=== PATIENT | male | born 1950 | race African-American/Black ===

== ENCOUNTER → 2016-11-06 | Day surgery (SDC) | payer MEDICARE, MEDICAID ==
[2016-11-06] VITALS (10 sets, daily range): BP systolic 131–168; BP diastolic 63–94
[~2016-11-06] VITALS: Ht 152.4 cm; Wt 114.8 kg
[~2016-11-06] MED LIST: ACULAR5 ML RIGHT EYE; BRIMONIDINE LEFT EYE; BSS 15ml BTL ONE; BSS 500ml btl ONE; Bupivacaine 0.75% 30ml vial INJ ONE; COLACE100 MG ORAL; COREG25 MG ORAL; Cyclopentolate 1% Opth Sol LEFT EYE SCH; Cyclopentolate 1% Opth Sol ONE; Dexamethasone 4mg/ml vial ONE; DiphenhydrAMINE 50mg/ml Inj IVP PRN; EPINEPHrine 1mg/1ml Amp ONE; FUROSEMIDE20 M1 ORAL; Goniosol 2.5% Opth Soln - 15ml ONE; JANUVIA25 MG ORAL; LORazepam Inj 2mg/ml 1ml IV PRN; LOTENSIN40 MG ORAL; LR 1000ml 1,000 ML IVLG SCH; LR 1000ml ONE; LUMIGAN2.5 ML LEFT EYE; Labetalol 5mg/ml 20ml vial IV PRN; Lidocaine 1% MPF 10mg/ml 5ml ONE; Lidocaine 2% MPF 5ml Vial INJ ONE; MULTIVITAMINS1 EAC2 ORAL; Maxitrol Opth Oint 3.5gm ONE; Midazolam 2mg/2ml Inj IVP PRN; Midazolam 2mg/2ml Inj ONE; NOVOLIN 70100 UNIT/1 SUBQ; NS Irrig 1000ml ONE; PEPCID20 MG ORAL; PLAVIX75 MG ORAL; PRAVACHOL20 MG ORAL; Phenylephrine 2.5% Op Soln LEFT EYE SCH; Phenylephrine 2.5% Op Soln ONE; Povidone-Iodine 5% opth solution ONE; Proparacaine 0.5% Opth Soln 15ml LEFT EYE SCH; Propofol 10mg/ml 20ml IV ONE; RANEXA500 MG ORAL; SEROQUEL XR300 MG ORAL; SEROQUEL XR400 MG ORAL; Sterile Water Irrig 1000ml IRRIG ONE; TAMSULOSIN HCL0.4 MG ORAL; TIMOLOL MALEATE5 ML LEFT EYE; TRUSOPT10 ML LEFT EYE; Tropicamide 1% Opth Soln LEFT EYE SCH; Tropicamide 1% Opth Soln ONE; VIGAMOX1 DROP BOTH EYES; fentaNYL 100 mcg/2 mL IV ONE
--- NOTE | 2016-11-06 09:19 | Anethesia Preoperative Eval ---
Anesthesia Pre-op PMH/ROS General Date of Evaluation: Nov 06, 2016 Anesthesiologist: Edouard ASA Score: ASA 4 Mallampati Score Class I : Soft palate, uvula, fauces, pillars visible Class II: Soft palate, uvula, fauces visible Class III: Soft palate, base of uvula visible Class IV: Only hard plate visible Mallampati Classification: Class III Surgeon: Allie Diagnosis: Left eye retained lens fragments Surgical Procedure: Left eye vitrectomy Anesthesia History: none Family History: no anesthesia problems Allergies: Coded Allergies: PENICILLINS (Verified Allergy, Intermediate, hives, 11/06/16) Medications: see eMAR Past Medical History Cardiovascular: Reports: CAD - s/p TX 2009, s/p stents x2 2013, HTN, other - severe PVD s/p bilateral BKA; HLD, Denies: TX, arrhythmia, valve dz Pulmonary: Reports: asthma, Denies: COPD, HYACINTH, other Gastrointestinal/Genitourinary: Reports: CRI, GERD, other - BPH, Denies: ESRD Neurologic/Psychiatric: Reports: other - schizophrenia, bipolar, Denies: CVA, TIA, dementia, depression/anxiety Endocrine: Reports: DM, Denies: hypothyroidism, other, steroids HEENT: Denies: UPPER SK[place]IT (L), UPPER SKAGIT (R), cataract (L), cataract (R), glaucoma, other Hematology/Immune: Denies: DVT, anemia, bleeding disorder, other Musculoskeletal/Integumentary: Denies: DDD, DJD, OA, RA, edema, other Other: obesity - morbid PSxH Narrative: Bilateral BKA, multiple eye sx Anesthesia Pre-op Phys. Exam Physician Exam see chart Constitutional: other - patient moderate agitated and abrasive towards staff Cardiovascular: other Respiratory: other - bilateral crackles Airway Exam Mallampati Score: Class III MO: full TMD: <3FB ROM: limited Teeth: missing, broken Anesthesia Pre-op A/P Labs see chart Studies Pre-op Studies: EKG - ?junctional rhythm Risk Assessment & Plan Assessment: ASA IV Plan: GA Status Change Before Surgery: No Pre-Antibiotics Drug: N/A YENNIFER BARTLETT M.D. Nov 06, 2016 09:19
--- NOTE | 2016-11-06 09:21 | Pre-Procedure Note/Attestation ---
Pre-Procedure Note/Attestation Complete Prior to Procedure Planned Procedure: left Procedure Narrative: PPV/PPL/AFE OS Indications for Procedure Pre-Operative Diagnosis: RLF OS Attestation I attest that I discussed the nature of the procedure; its benefits; risks and complications; and alternatives (and the risks and benefits of such alternatives ), prior to the procedure, with the patient (or the patient's legal retention representative). I attest that, if there was a reasonable possibility of needing a blood transfusion, the patient (or the patient's legal retention representative) was given the [facility] standardized written summary, pursuant to the [place] Blood Safety Act ([place] Health and Safety Code # 1645, as amended). I attest that I re-evaluated the patient just prior to the surgery and that there has been no change in the patient's H&P, except as documented below: Akhil Kelley M.D. Nov 06, 2016 09:20
--- NOTE | 2016-11-06 10:08 | Immediate Post-Op Evaluation ---
Immediate Post-Op Evalulation Immediate Post-Op Evalulation Procedure: Left eye vitrectomy Date of Evaluation: Nov 06, 2016 Time of Evaluation: 10:56 IV Fluids: 500 Blood Products: 0 Estimated Blood Loss: min Urinary Output: 0 Blood Pressure Systolic: 157 Blood Pressure Diastolic: 90 Pulse Rate: 80 Respiratory Rate: 16 O2 Sat by Pulse Oximetry: 100 Temperature (Fahrenheit): 97.2 Pain Score (1-10): 0 Nausea: No Vomiting: No Complications 0 Patient Status: awake, reacts, patent, none Hydration Status: adequate Drug: N/A YENNIFER BARTLETT M.D. Nov 06, 2016 10:08
--- NOTE | 2016-11-06 10:09 | 48 Hour Post Anesthesia Eval ---
Post Anesthesia Evaluation Procedure: Left eye vitrectomy Date of Evaluation: Nov 06, 2016 Blood Pressure Systolic: 164 0: 87 Pulse Rate: 79 Respiratory Rate: 17 Temperature (Fahrenheit): 97.2 O2 Sat by Pulse Oximetry: 100 Airway: patent Nausea: No Vomiting: No Pain Intensity: 0 Hydration Status: adequate Cardiopulmonary Status: at baseline Mental Status/LOC: patient returned to baseline Post-Anesthesia Complications: 0 Follow-up care needed: ready to discharge YENNIFER BARTLETT M.D. Nov 06, 2016 10:09
--- NOTE | 2016-11-06 10:41 | Operative Note - PDOC ---
Operative Note Operative Note Pre-op Diagnosis: Retained lens fragment and diabetic retinopathy OS Procedure: PPV/PPL/PRP/AFE OS Post-op Diagnosis: RLF/PDR/VH OS Surgeon: Allie Anesthesia: general Specimen: none Complications: none Condition: stable Estimated Blood Loss: minimal Drains: none Implant(s) used?: No Indications for Procedure The patient has retained lens fragments following CE/IOL and presents today for surgery after review of the risks, benefits, alternative and signing informed consent into the medical chart. Description of Procedure Procedure performed: The patient was met in the pre-op area. Informed consent was reviewed the eye was marked and dilated. The patient was transferred to the operative suite, where cardiopulmonary monitoring was established and general anesthesia was induced without complications. The eye was prepped and draped in sterile ophthalmic fashion. Under microscopic visualization the 23 gauge infusion line was placed 3.5 millimeters inferotemporally. After visualization of the tip in the vitreous cavity, the infusion line was turned on. The superotemporal and superonasal cannulas were placed. The anterior lens fragments were cleared with the vitreous cutter. Under BIOM visualization, peripheral and core vitrectomy was performed. Posterior vitreous separation was induced. As further peripheral vitrectomy was performed, there were a large nuclear fragments in the anterior vitreous base. Phacofragmentation was used to removed the nuclear fragments. Inspection of the periphery revealed vitreous hemorrhage from areas of peripheral NVE. No iatrogenic breaks were noted. Endolaser was applied to perform PRP therapy. Air fluid exchange was performed. The sclerotomies were sutured. The eye maintained normal pressure. Subconjunctival vancomycin and dexamethasone were administered. The lid speculum was removed. The eye was cleaned of prep and drape. Maxitrol ointment was applied and a pressure patch was placed. The patient was turned over to the anesthesia team who transferred her in stable condition to the PACU. Akhil Kelley M.D. Nov 06, 2016 10:41
--- NOTE | 2016-11-06 23:30 | Pre-op HX & Phy Repo 2 SIG ---
DATE OF ADMISSION: 11/06/2016 REASON FOR EVALUATION: I was asked by Dr. Kelley to see this 66-year-old male, who going for elective surgery on the left eye. The patient has retained lens material fragment in left eye. The patient was examined. Chart was reviewed. The patient is a resident of [facility]. PAST MEDICAL HISTORY: Obtained from the chart from [facility] ([place], [place]) and from patient's information. PAST MEDICAL HISTORY/REVIEW OF SYSTEMS: Remarkable for history of heart attack 10 years ago, angina pectoris, coronary angioplasty and stent placement four years ago . The patient has history of hypertension, GERD, renal insufficiency, insulin-dependent diabetes mellitus, hyperlipidemia, bipolar disorder, peripheral artery disease, bilateral eajws-[id number]-advf amputation, history of chronic constipation. PAST SURGICAL HISTORY: Cataract surgery of both eyes and bilateral [id number]-[id number] amputation, multiple. MEDICATIONS: Present medications include Plavix last intake yesterday, Seroquel 400 mg daily, Lasix, Ranexa, Pepcid, Coreg 25 mg, Plavix 75 mg, Januvia 50 mg daily, eye drops, milk of magnesia and statins. The patient is on Humulin 70/30, 30 units daily. ALLERGIES: Penicillin, developed hives. HABITS: Tobacco use, two cigarettes a day. Alcohol last 18 [address] ago[address] drugs. FAMILY HISTORY: Remarkable for mother had diabetes mellitus. PHYSICAL EXAMINATION: GENERAL: The patient is obese. His weight 243 pounds and 5 feet 10 inch tall. VITAL SIGNS: Blood pressure 166/79, temperature 98 degrees, pulse 82 and regular, and O2 saturation 95% on room air. SKIN: Dry and warm. No rashes. No diaphoresis. No cyanosis. LYMPH NODES: Not enlarged. HEENT: Head, normocephalic. Ears, clear. Eyes, full description per Dr. Kelley. Mouth, clear and moist. Absent of some bottom teeth. Tongue is in midline. NECK: Supple. No jugular distention. No palpable mass. No carotid artery bruits. No jugular venous distention. CHEST: No deformity or asymmetry. LUNGS: Clear. No rales or rhonchi. No wheezing. HEART: Sinus rhythm. Sound distant. No murmur. No S3 or S4. ABDOMEN: Soft and obese. No palpable mass. No rebound. Liver and spleen not enlarged. EXTREMITIES: Voczr-ngk-jkyl amputation bilaterally. No edema. GENITOURINARY: No dysuria. History of BPH. NEUROLOGIC: No asymmetry. No tremor. No nystagmus. History of bipolar disorder. LABORATORY AND DIAGNOSTIC DATA: Electrocardiogram from 10/10/2016, shows accelerated junctional rhythm and nonspecific ST changes. The patient did not eat or drink from last night. Lab work this morning, fasting blood sugar 337 milligram/deciliter. Recommendations, Regular Insulin 7 units IMPRESSION: 1. Retained lens fragment, left eye 2. 2. Hypertension, controlled. 3. Coronary heart disease. 4. History of myocardial infarction and angioplasty with stent placement. 5. Insulin-dependent diabetes mellitus with severe complications, poorly controlled. 6. Bipolar disorder. 7. Gastroesophageal reflux disease. 8. Chronic constipation. 9. Benign prostatic hypertrophy. 10. Chronic kidney disease. 11. Obesity. 12. Hyperlipidemia. PLAN: Pars plana vitrectomy, 23 GA, left eye per Dr. Kelley. CONCLUSION: The patient is a 66-year-old male with multiple medical problem. His blood pressure controlled and blood sugar elevated, we will try to control, defer to primary care physician. The patient did not eat or drink from last night. The patient's condition optimized for surgery. David Lowery M.D. DR: MIKHAIL JOB#: [id number] CC:
== END | disposition home or self-care (01) ==
LOC: EDBD 08:19 → SUR 08:19
DX: H59.022 Cataract (lens) fragments in eye following cataract surgery, left eye (principal); Y83.8 Other surgical procedures as the cause of abnormal reaction of the patient, or of later complication, without mention of misadventure at the time of the procedure; Y92.89 Other specified places as the place of occurrence of the external cause; E11.3592 Type 2 diabetes mellitus with proliferative diabetic retinopathy without macular edema, left eye; E11.65 Type 2 diabetes mellitus with hyperglycemia; H43.12 Vitreous hemorrhage, left eye; Z79.4 Long term (current) use of insulin; Z79.84 Long term (current) use of oral hypoglycemic drugs; I25.119 Atherosclerotic heart disease of native coronary artery with unspecified angina pectoris; Z95.5 Presence of coronary angioplasty implant and graft; I25.2 Old myocardial infarction; I12.9 Hypertensive chronic kidney disease with stage 1 through stage 4 chronic kidney disease, or unspecified chronic kidney disease; N18.9 Chronic kidney disease, unspecified; K21.9 Gastro-esophageal reflux disease without esophagitis; I70.209 Unspecified atherosclerosis of native arteries of extremities, unspecified extremity; E78.5 Hyperlipidemia, unspecified; F31.9 Bipolar disorder, unspecified; F17.210 Nicotine dependence, cigarettes, uncomplicated; K59.09 Other constipation; J45.909 Unspecified asthma, uncomplicated; E66.9 Obesity, unspecified; N40.0 Benign prostatic hyperplasia without lower urinary tract symptoms; Z89.512 Acquired absence of left leg below knee; Z89.511 Acquired absence of right leg below knee; Z88.0 Allergy status to penicillin; Z79.01 Long term (current) use of anticoagulants
CPT/HCPCS: 82962; 94003; 94150; J2250